=== PATIENT | female | born 1985 | race Caucasian/White ===

== ENCOUNTER → 2021-09-23 | Outpatient (CLI) | payer OTHER ==
[2021-09-23 09:14] VITALS: BP 137/83; PULSE 88; RESP 18; TEMP 98.2
--- NOTE | 2021-09-23 09:27 | P.CON ---
Consult Note - . Consult date: 09/23/21 Assessment/Plan:: HISTORY OF PRESENT ILLNESS: 36 -year-old female as a referral from Dr. tim Cifuentes presents today with cervical disc bulge and facet arthropathy for evaluation. Patient states she has been having neck pain for several years, currently at 0 out of 10 in intensity but escalates as high as 4 out of 10 in intensity, dull, achy with overhead reaching. Pain radiates to the right upper extremity with tingling in her right pinky finger and right upper extremity weakness. Pain is relieved with OTC Tylenol and Motrin, topical diclofenac gel #5, cervical traction in the past, cannabis use, heat, physical therapy in May 2021, daily home exercise regimen, massage therapy through physical therapy, rest. PMH: Vitamin D deficiency PSH: Denies SH: Current tobacco user. Occasional EtOH use. Denies illicit drug use. 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 FH: Mother- OA, osteoporosis, early menopause All: NKDA Meds: See list REVIEW OF ORGAN SYSTEMS: CONSTITUTIONAL: No fevers or chills. No recent weight loss. HEENT: No visual acuity loss, eye pain, difficulties with hearing. No nosebleeds. No difficulty swallowing. RESPIRATORY: Denies any troubles with breathing or dyspnea on exertion. CARDIOVASCULAR: Denies any chest pain, palpitations, or recent heart attacks. GASTROINTESTINAL: Denies fatty food intolerance. Has change in bowel habits and gas bloat. GENITOURINARY: Denies any blood in urine. Has increased urinary frequency. NEUROLOGICAL: + numbness and tingling along the distal extremities. No seizure disorders or headaches. MUSCULOSKELETAL: + back pain SKIN: No skin cancer. No rash. PSYCHIATRIC: Denies current depression or suicidal thoughts. ENDOCRINE: Denies current thyroid disorders. Denies any blood sugar glucose intolerance. HEME/LYMPHATIC: Denies any lumps and bumps around the neck. History of deep venous thrombosis. ALLERGY/IMMUNOLOGY: No immunoglobulin therapy. No immune deficiencies. BREAST: Denies current breast lumps, pain or nipple discharge. Physical Examinations : Constitutional : Cooperative , not in acute distress . HEENT: Neck supple. No Lymphadenopathy. Normal thyroid size . Eyes no ptosis , no icterus, no photophobia . Hearing intact. Normal oropharynx. No Thrush. Respiratory : Chest clear to auscultations bilaterally. No wheezing. No rhonchi. Cardiovascular : Regular rate and rhythm , S1 / S2. No S3 . No S4. Gastrointestinal : Abdomen soft. No tenderness. Bowel sounds x 4. No organomegaly . Genitourinary : Deferred. Neurologic : Cranial nerve II to XII intact. No focal neurological deficits. Psychiatric : alert & oriented x 3. Matching mood & appropriate affect. Judgment & insight intact. Lymphatic No Lymphadenopathy. Musculoskeletal : Cervical Spine Motor strength in the deltoid and biceps: Normal right side. Normal Left side Motor strength biceps and the wrist extensors: Normal right side . Normal left side Motor strength in the triceps muscle: Normal right side. Normal left side Deep tendon reflexes: Normal at the biceps. Normal at Brachioradialis. Normal at triceps Vertebral body tenderness over C5 Cervical facet loading test: positive bilaterally Spurling test: positive Neck distraction test: positive Marbin sign: positive bilaterally Lumbar spine Motor strength lower extremities ,thigh and legs 5/5 Right side , 5/5 Left side Deep tendon reflexes : Normal Knee Jerk. Normal Ankle Jerk Vertebral body tenderness over Lumbar facet Loading Test: positive Right / positive Left Range of motion of the lumbar spine Flexion 30 degrees, extension 10 degrees Straight Leg Raise test: Left/ Right positive at degree Wen test: positive right / positive left. Severe tenderness over the Sacroiliac joint on the Right / Left sides Gaenslen test: positive bilaterally Seated flexion test: positive bilaterally. Assessment/ Plan : Cervical disc bulges, cervical facet arthropathy. Recommendation of C5-C6 interlaminar KOJO. May need a series of 3 within a six- month period for optimal pain relief. Discussed seizing tobacco use to elevate the threshold tolerance for pain. Discussed cervical traction as a pain remedy regimen. Risks, benefits of procedure discussed and patient verbalized understanding. Denies aspirin or anti- coagulant use. Denies medical history of diabetes mellitus. All questions answered. I have spent greater than 50 minutes on patient care today. Dr Gan was available by phone for the evaluation of this patient. The time was used to review the medical records including relevant urine studies and Prescription history (MAPs), review of the available imaging, evaluation and examination of the patient, coordination of care with the medical staff and if applicable referring physicians, as well as creation of the medical record PQRS Measure Charge Sheet Mode of Arrival: Ambulatory - Pain Location Neck Non-Pharmacological Interventions: Heat, Home Exercise, Inactivity, Massage, Physical Therapy, Position/Reposition, Stretching Pharmacological Interventions: PRN Medication, Topical Medication PQRS Narrative: Blood Pressure 137/83 Pain Intensity [Neck] 4 Scale Used Numeric (1 - 10) Hx Alcohol Use (MH) Yes Home Medications: Ambulatory Orders Ergocalciferol [Vitamin D2 (1250 Mcg = 72361 Iu)] 1,250 mcg PO TH 09/20/21 medroxyPROGESTERone [Depo-Provera] 150 mg IM Q90D 09/20/21
== END | disposition home or self-care (01) ==
LOC: PNWHC3 08:38
PROVIDERS: ATTEND Physician Assistant Medical
DX: M50.20 Other cervical disc displacement, unspecified cervical region (principal); M54.12 Radiculopathy, cervical region
CPT/HCPCS: 99211

== ENCOUNTER 2021-11-07 08:31 | Day surgery (SDC) | payer OTHER ==
[2021-11-06 10:22] VITALS: BMI 23.5
[2021-11-07] MEDS ORDERED: LIDOCAINE 1% (10MG/ML) FOR IV START INTRADERMA PRN (08:45)
[2021-11-07] MEDS ORDERED: LACTATED RINGERS 1,000 ML IV SCH (08:45)
[2021-11-07 09:01] VITALS: TEMP 98.4
[2021-11-07] MEDS: LACTATED RINGERS 1,000 ML IV SCH ×2 (09:04→09:06)
[2021-11-07] MEDS ORDERED: IOPAMIDOL M200 10 ML VIAL ONE (09:08)
[2021-11-07] MEDS ORDERED: MIDAZOLAM 2 MG/2 ML VIAL ONE (09:08)
[2021-11-07] MEDS ORDERED: DEXAMETHASONE SOD PHOSPHATE 10 MG/ML 1 ML VIAL ONE (09:08)
[2021-11-07] MEDS ORDERED: fentaNYL (PF) 50 MCG/ML 2 ML AMP ONE (09:08)
--- NOTE | 2021-11-07 09:26 | P.PCN ---
Date of Procedure: 11/07/21 Procedure(s) Performed: . PROCEDURE 1. Cervical epidural steroid injection under fluoroscopic guidance, C5-6 (fluoroscopy images available in the radiology department ) 2. Cervical epidurogram. PREOPERATIVE DIAGNOSIS: 1- Cervical Degenerative Disc Diseases 2- Cervical radiculopathy., 3-cervical spondylosis with cervical Facet arthropathy without myelopathy POSTOPERATIVE DIAGNOSIS: : 1- Cervical Degenerative Disc Diseases , 2- Cervical radiculopathy. 3-,cervical spondylosis with cervical Facet arthropathy without myelopathy ANESTHESIA: Local anesthesia with lidocaine 1 % , and moderate sedation, with Versed 2 mg and Fentanyl 100 mcg. EBL 0 PROCEDURE INDICATION: The patient with neck pain and radiculitis unresponsive to conservative treatment consents for procedure. PROCEDURE DESCRIPTION / TECHNIQUE: The patient was seen and identified in the preoperative area. Risks, benefits, complications, including but not limited to infections ,bleeding , allergic reactions to the medications ,and not complete pain releife, and alternatives were discussed with the patient, the patient agreed to proceed with the procedure and signed the consent. Patient was taken to the OR and time out was completed. The patient was placed in the prone position on the procedure table. A pillow was placed under the patients chest to increase the cervical interlaminar space. The cervical area was prepped and draped in the usual sterile fashion. Vital signs were closely monitored during the procedure. Conscious sedation was used during the procedure to decrease patients anxiety. Using anterior-posterior fluoroscopy, the C5-6 interlaminar space was identified and the skin over this site was marked and then infiltrated with 1% lidocaine subcutaneously. Subsequently, a 20-gauge 3-1/2-inch Tuohy epidural needle was inserted and advanced toward the epidural space by means of the ``hanging-drop technique and guided by AP and lateral fluoroscopy. The correct needle position in the epidural space was verified with the injection of 2 mL of the water soluble contrast dye [id number]-200 and observing an excellent epidurogram with the epidural spread of the dye, after negative aspiration for blood and CSF and in the absence of paresthesias. then, mixture containing 20 mg Dexamethasone and 2 ml of preservative-free normal saline injected and a washout of epidurogram was seen. Needle was withdrawn intact, skin was cleansed, and bandages were applied. Complications= none. Disposition= patient was placed in supine position and transferred to the recovery room area in stable condition and there was no evidence of upper or lower extremity motor or sensory deficit after the procedure patient was discharged from recovery room after discharge criteria met and home discharge instructions was given by the staff and patient will follow with the pain clinic in 2-4 weeks
[2021-11-07] MEDS ORDERED: IV FLUID CONTINUATION 1,000 ML IV ONE (09:30)
[2021-11-07 09:47] VITALS: BP 107/69; PULSE 62; RESP 18
--- NOTE | 2021-11-07 09:47 | FL ---
EXAMINATION TYPE: FL guided pain mgmt statistic DATE OF EXAM: 11/07/2021 HISTORY: Fluoroscopy time 8 seconds of fluoroscopy provided. IMPRESSION: 1. Fluoroscopy time.
== END 2021-11-07 10:01 | disposition home or self-care (01) ==
LOC: ORPAIN 08:31
PROVIDERS: ATTEND Specialist
DX: M50.122 Cervical disc disorder at C5-C6 level with radiculopathy (principal); M47.22 Other spondylosis with radiculopathy, cervical region
CPT/HCPCS: 81025; 62321; J2250; J1100; J3010; Q9966; 99152